=== PATIENT | female | born 1980 ===

== ENCOUNTER 2017-10-20 14:26 | Outpatient (REF) | payer MEDICAID, SELFPAY ==
[2017-10-20 20:19] LABS: COMMENT (LAB VIEW ONLY) 218.34 mg/dL; Microalb ug/mg Crea 4.9 ug/mg Cr
== END 2017-10-20 14:27 ==
LOC: NCHCN 14:26
PROVIDERS: PCP Internal Medicine; Visit Provider Internal Medicine
DX: E11.9 Type 2 diabetes mellitus without complications (principal)
CPT/HCPCS: 82043; 82570

== ENCOUNTER 2018-08-30 16:10 | Outpatient (REF) | payer MEDICAID, SELFPAY | END 2018-08-30 16:30 | LOC: NCHCN 16:10 | PROVIDERS: PCP Internal Medicine; Visit Provider Internal Medicine | DX: E11.9 Type 2 diabetes mellitus without complications (principal); L88 Pyoderma gangrenosum | CPT/HCPCS: 87070; 87205 ==

== ENCOUNTER 2018-11-07 16:36 | Outpatient (REF) | payer MEDICAID, SELFPAY ==
[2018-11-07 21:03] LABS: Iron 53 ug/dL (50-175); Total Iron Binding Capacity 423 ug/dL (250-450); Transferrin Sat 13 % (15-50)
[2018-11-07 21:05] LABS: Hemoglobin A1C 6.9 % (4.5-6.2)
[2018-11-07 21:16] LABS: ALT 78 U/L (12-78); Ferritin 40 ng/mL (8-388)
[2018-11-14 15:19] LABS: Specimen WB Whole Blood
== END 2018-11-07 16:56 ==
LOC: NCHCN 16:36
PROVIDERS: PCP Internal Medicine; Visit Provider Internal Medicine
DX: E11.9 Type 2 diabetes mellitus without complications (principal); E79.0 Hyperuricemia without signs of inflammatory arthritis and tophaceous disease; K75.81 Nonalcoholic steatohepatitis (NASH); F19.10 Other psychoactive substance abuse, uncomplicated
CPT/HCPCS: 81256; 82728; 83036; 83540; 83550; 84460

== ENCOUNTER 2019-06-06 16:54 | Outpatient (REF) | payer MEDICAID, SELFPAY ==
[2019-06-06 19:46] LABS: ALT 57 U/L (14-59); Anion Gap 8.3 mmol/L (3-11); BUN 5 mg/dL (7-18); CO2 30.7 mmol/L (21.0-32.0); CREATININE 0.89 mg/dL (0.55-1.02); Chloride 100 mmol/L (98-107); Glucose 114 mg/dL (74-106); LDL CHOLESTEROL 185 mg/dL (<100); Potassium 3.7 mmol/L (3.5-5.1); Sodium 139 mmol/L (136-145); TSH 1.75 uIU/mL (0.36-3.74)
[2019-06-06 19:49] LABS: Hemoglobin A1C 6.8 % (3.8-5.6)
== END 2019-06-06 17:14 ==
LOC: NCHCN 16:54
PROVIDERS: PCP Internal Medicine; Visit Provider Internal Medicine
DX: K75.81 Nonalcoholic steatohepatitis (NASH) (principal); E11.9 Type 2 diabetes mellitus without complications; F19.10 Other psychoactive substance abuse, uncomplicated; L88 Pyoderma gangrenosum
CPT/HCPCS: 80048; 83721; 83036; 84443; 84460

== ENCOUNTER 2019-12-09 18:39 | Outpatient (REF) | payer MEDICAID, SELFPAY ==
[2019-12-09 19:53] LABS: Calculated LDL 72 mg/dL (<100); Cholesterol 134 mg/dL (<200); HDL Cholesterol 39 mg/dL (40-60); Triglyceride 115 mg/dL (<150)
[2019-12-10 14:37] LABS: ALT 63 U/L (14-59)
== END 2019-12-09 18:59 ==
LOC: NCHCN 18:39
PROVIDERS: PCP Internal Medicine; Visit Provider Internal Medicine
DX: E11.9 Type 2 diabetes mellitus without complications (principal); K75.81 Nonalcoholic steatohepatitis (NASH); F19.10 Other psychoactive substance abuse, uncomplicated; L88 Pyoderma gangrenosum
CPT/HCPCS: 80061; 84460

== ENCOUNTER 2020-03-09 21:01 | Outpatient (REF) | payer MEDICAID, SELFPAY ==
[2020-03-09 19:21] LABS: COMMENT (LAB VIEW ONLY) 15.58 mg/dL
== END 2020-03-09 21:21 ==
LOC: NCHCN 21:01
PROVIDERS: PCP Internal Medicine; Visit Provider Internal Medicine
DX: E11.9 Type 2 diabetes mellitus without complications (principal)
CPT/HCPCS: 82043; 82570

== ENCOUNTER 2020-09-11 18:42 | Outpatient (REF) | payer MEDICAID, SELFPAY ==
[2020-09-17 11:19] LABS: Benzoylecgonine 1053 ng/mL (Cutoff: 50); Cocaine Negative ng/mL (Cutoff: 50); Cocaine Interpretation Positive.
== END 2020-09-11 18:43 | disposition home or self-care (01) ==
LOC: NCHCN 18:42
PROVIDERS: PCP Internal Medicine; Visit Provider Physician Assistant
DX: F19.10 Other psychoactive substance abuse, uncomplicated (principal)
CPT/HCPCS: 80353